=== PATIENT | male | born 1950 | race Caucasian/White ===

== ENCOUNTER 2018-01-31 05:27 | Inpatient (IN) ==
[2018-01-31] MEDS ORDERED: Metoprolol Tartrate 25 MG Tablet PO ONE (05:59)
[2018-01-31] MEDS ORDERED: Chlorhexidine Gluconate 2% 1 Pack (2 Cloths) TOPICAL ONE (05:59)
[2018-01-31] MEDS ORDERED: Sodium Chlor 0.9% Inj 500 ML IV.SIG SCH (06:00)
[2018-01-31] MEDS ORDERED: Dexamethasone Inj 20 MG/5 ML Vial IV.PUSH ONE (06:03)
[2018-01-31] MEDS ORDERED: Chlorhexidine 4% Topical 120 APPLIC/120 ML Bottle TOPICAL SCH (06:15)
[2018-01-31] MEDS ORDERED: Vancomycin Inj 1,000 MG in Sodium Chlor 0.9% Inj 250 ML IV.SIG SCH (07:00)
[2018-01-31] MEDS ORDERED: ceFAZolin 2 GM Premix Inj 2 GM/50 ML PIGGYBACK IV.SIG SCH (07:00)
[2018-01-31] MEDS ORDERED: Sodium Chlor 0.9% Inj 10 ML ONE (07:44)
[2018-01-31] MEDS ORDERED: Ketorolac Inj 30 MG/ML (IVP) Vial IV.PUSH ONE (08:09)
[2018-01-31] MEDS ORDERED: Labetalol HCl Inj 100 MG/20 ML Vial IV.CONT ONE (08:09)
[2018-01-31] MEDS ORDERED: Neostigmine Inj 5 MG/5 ML Syringe IV.PUSH ONE (08:09)
[2018-01-31] MEDS ORDERED: Lidocaine PF 1% Inj 5 ML Syringe OTHER ONE (08:09)
[2018-01-31] MEDS ORDERED: Glycopyrrolate Inj 1 MG/5 ML Syringe IV.PUSH ONE (08:09)
[2018-01-31] MEDS ORDERED: SODIUM CHLOR 0.9% IV.SIG SCH (08:30)
[2018-01-31] MEDS ORDERED: Sodium Chlor 0.9% Inj 73.07 ML, Ropivacaine 0.5% PF Inj 24.63 ML, Ketorolac Inj 30 MG, ... P-ARTICULR SCH ×5 (08:30)
[2018-01-31] MEDS ORDERED: TRANEXAMIC ACID IV.SIG SCH (08:30)
[2018-01-31] MEDS ORDERED: Morphine Inj 4 MG/ML Vial IV.PUSH PRN (09:55)
[2018-01-31] MEDS ORDERED: Aluminum/Magnesium/Simethacone Susp 30 ML UDC PO PRN (09:55)
[2018-01-31] MEDS ORDERED: Post-op Orders (for Pharmacy) OTHER STA (09:55)
[2018-01-31] MEDS ORDERED: Bisacodyl 10 MG Supp RECTAL PRN (09:55)
[2018-01-31] MEDS ORDERED: Zolpidem Tartrate 5 MG Tablet PO PRN (09:55)
--- NOTE | 2018-01-31 09:58 | P.OP ---
- Preoperative Diagnosis (1) Osteoarthritis of left knee - Postoperative Diagnosis (1) Osteoarthritis of left knee Date of procedure: 01/31/18 Anesthesia: [facility], toribio (s) Surgeon: Errol Powell MD Coiler Operator: MOSES Coleman The surgical procedure was assisted by my Advanced Registered Nurse Practitioner. My TURF SALES PERSON presence was necessary throughout this case for the manipulation and positioning of the surgical extremity. My TURF SALES PERSON was assisting me throughout the duration of this procedure. The skill set of an Advance Registered Nurse Practitioner was medically necessary to complete this procedure. During the surgical case, the underwriting technician was working at the back table and the Advance Registered Nurse Practitioner was directly assisting me. Operation and Findings: IMPLANTS: DePuy Attune: Patella: size 38. Femur, posterior stabilized size 8. Tibia, rotating platform size 8. Tibial insert, rotating platform, posterior stabilized size 5 mm thickness. ESTIMATED BLOOD LOSS: 100 cc TOURNIQUET TIME: 35 minutes at 250 mmHg pressure. JUSTIFICATION FOR PROCEDURE: The patient has end-stage osteoarthritis to the knee. There is an attached conservative measures pathway form in the chart that describes the nonoperative measures that were undertaken prior to consideration of surgical management. The patient understood the risks and benefits of surgical management. See my office notes for further details PROCEDURE: The patient was brought back to the operative theatre. Adequate anesthesia was obtained. The patient received intravenous vancomycin and Ancef. The lower extremity was prepped and draped in the usual sterile fashion.The leg was exsanguinated, the tourniquet was raised. A standard anterior incision was performed followed by medial parapatellar arthrotomy was performed. End-stage arthritis was identified. Osteotomy of the patella was performed. We drilled holes for the patella. We trialed the patella component. We placed an intramedullary guide into the distal femur. We ultimately resected 13 mm off of the distal femur in 5 degrees of valgus. The remnants of the ACL and PCL were resected. Osteotomy of the proximal tibia was performed, resecting 5 mm off of the medial side. This was done with 3 degrees of posterior slope using an extramedullary guide. The distal end of the guide was placed in the mid aspect of the ankle. The femur was sized, and four chamfer cuts were completed in 3 of external rotation. We then cut the central box in the distal femur to replace the PCL. We resected the remnants of the menisci and removed osteophytes off of the femur and tibia. We then trialed the knee. We punched the tibia for the keel, and then used standard technique to cement in components. Excess cement was removed. We trialed the knee again and the final polyethylene thickness was chosen to provide extension to 0 degrees, and flexion of 140 degrees to gravity. The ligaments were appropriately balanced. Lateral release was necessary to obtain excellent patellofemoral tracking. The tourniquet was released and adequate hemostasis was obtained. An intra- articular injection of a ropivacaine cocktail was injected. The posterior knee was inspected for excess cement, which was removed. The final polyethylene was put into position after thorough irrigation. We then closed deep fascia with a #2 Stratafix followed by skin with 2-0 Vicryl followed by Dermabond dressing. Postop plan is to weight-bear as tolerated. DVT prophylaxis will be performed with SCDs, SALEEM hose, early mobilization, and aspirin.
[2018-01-31] MEDS ORDERED: *morphine SULFATE 4 MG/ML PERIprocedure ONLY ONE ×2 (10:38→10:50)
[2018-01-31] MEDS ORDERED: fentaNYL Citrate Inj 100 MCG/2 ML Ampul ONE (10:40)
[2018-01-31] MEDS: Sod Chloride 0.9% Inj 1,000 ML IV.CONT SCH (10:43)
[2018-01-31] MEDS ORDERED: HYDROmorphone PF Inj 2 MG/ML Vial ONE ×2 (11:00→12:03)
--- NOTE | 2018-01-31 11:34 | XR ---
EXAM DATE: 01/31/2018 11:24 AM EST AGE/SEX: 67 years / Male INDICATIONS: Post op left knee surgery. CLINICAL DATA: This is the patient's initial encounter. Patient reports that signs and symptoms have been present for 1 day and indicates a pain score of 4/10. MEDICAL/SURGICAL HISTORY: None. . COMPARISON: PCI, XR KNEE COMPLETE, LEFT, 06/27/2017. . FINDINGS: AP and lateral views of the knee following arthroplasty reveals a prosthesis in anatomic alignment. F racture is not appreciated. Surgical drain is evident CONCLUSION: Status post total knee arthroplasty. Blaine Sewell MD FACR Electronically signed by: Blaine Sewell MD 01/31/2018 11:33 AM EST
[2018-01-31] MEDS ORDERED: TRANEXAMIC ACID IV.SIG ONE (12:00)
[2018-01-31] MEDS ORDERED: SODIUM CHLOR 0.9% IV.SIG ONE (12:00)
[2018-01-31] MEDS ORDERED: ceFAZolin 1 GM Premix Inj 1 GM/50 ML FROZ.PIGGY IV.SIG ONE (13:57)
[2018-01-31] MEDS ORDERED: Metoprolol Inj 5 MG/5 ML Vial ONE ×2 (14:40→14:55)
[2018-01-31] MEDS ORDERED: Metoprolol Inj 5 MG/5 ML Vial IV.PUSH SCH ×2 (15:30)
--- NOTE | 2018-01-31 17:45 | P.DCO ---
- Physical Therapy Physical Therapy: Gait training, Transfer training, bed to chair Knee: Total knee Left Lower Extremity Weight Bearing: Weight bearing as tolerated Left Lower Extremity Range of Motion: Active ROM - Nursing Dressing changes: Do not change dressing Additional instructions: First dressing change in the office. - Certification Need for Home Health services: I have seen patient Ramon Valentine on 01/31/18. My clinical findings support the need for the requested home health care services because: Need for Home Health Services: Limited ability to care for self, High risk of falls Homebound Certification: I certify that my clinical findings support that this patient is homebound because: Homebound Certification: Post-op weakness, Unsteady gait/balance
[2018-01-31] MEDS: ceFAZolin 1 GM Premix Inj 1 GM/50 ML FROZ.PIGGY IV.SIG SCH (19:46)
[2018-01-31] MEDS: Senna/Docusate Sodium 8.6/50 MG Tablet PO SCH (21:14)
[2018-01-31] MEDS: Multivitamin/Minerals Therapeutic Tablet PO SCH (21:15)
[2018-02-01] MEDS: ceFAZolin 1 GM Premix Inj 1 GM/50 ML FROZ.PIGGY IV.SIG SCH (01:26)
[2018-02-01] MEDS: Sod Chloride 0.9% Inj 1,000 ML IV.CONT SCH (01:32)
[2018-02-01 05:57] LABS: Hematocrit 39.8 % (39.0-51.0); Hemoglobin 13.7 gm/dL (13.0-17.0)
--- NOTE | 2018-02-01 07:17 | P.PNOP ---
Subjective Interval history: The patient is resting comfortably in bed in no acute distress. The patient reports minimal pain to the left knee. The patient has been ambulatory. The patient states he wants to go home today with home health. Physical Exam Vital signs: Vital Signs 01/31/18 07:58 01/31/18 10:30 01/31/18 10:45 Temperature 97.7 F Pulse Rate 72 72 66 Respiratory Rate 16 14 14 Blood Pressure 135/67 144/74 H 133/63 Pulse Oximetry 99 100 100 01/31/18 11:00 01/31/18 11:15 01/31/18 11:30 Temperature Pulse Rate 68 68 67 Respiratory Rate 12 12 12 Blood Pressure 139/67 142/64 H 142/57 H Pulse Oximetry 100 100 100 01/31/18 12:00 01/31/18 13:00 01/31/18 14:00 Temperature Pulse Rate 75 94 H 109 H Respiratory Rate 12 12 18 Blood Pressure 125/68 115/69 125/79 Pulse Oximetry 97 97 99 01/31/18 14:15 01/31/18 14:40 01/31/18 14:45 Temperature Pulse Rate 114 H 109 H 106 H Respiratory Rate 19 19 Blood Pressure 128/73 138/75 Pulse Oximetry 95 98 95 01/31/18 15:00 01/31/18 15:15 01/31/18 15:30 Temperature 98.5 F 97.8 F Pulse Rate 101 H 90 88 Respiratory Rate 13 13 12 Blood Pressure 126/72 134/65 126/79 Pulse Oximetry 96 94 L 97 01/31/18 19:19 02/01/18 00:00 02/01/18 04:00 Temperature 97.8 F 97.8 F 98.2 F Pulse Rate 90 69 86 Respiratory Rate 16 16 18 Blood Pressure 109/65 144/65 H 157/68 H Pulse Oximetry 94 L 97 95 Intake & Output 01/31/18 02/01/18 02/01/18 18:59 06:59 18:59 Intake Total 3003.24 / 3003.24 800 / 800 Output Total 50 / 50 750 / 750 Balance 2953.24 / 2953.24 50 / 50 Weight 111.2 kg Intake: IV 1423.24 / 1423.24 800 / 800 NS Inj 1,000 ML @ 80 mls/hr IV. 300 / 300 700 / 700 CONT .[id number] [facility] Rx#:[id number] LR 1000 mL Inj 500 ML @ 0 mls/ 500 / 500 hr IV.SIG ONCE ONE Rx#:[id number] Cyklokapron Inj 1,112 MG In NS 223.24 / 223.24 Inj 100 ML @ 200 mls/hr IV.SIG ONCE ONE Rx#:[id number] Vancomycin Inj 1,000 MG In NS 250 / 250 Inj 250 ML @ 250 mls/hr IV.SIG [facility] Rx#:[id number] Ancef 1 GM Premix Inj 1 gm In 100 / 100 50 ml @ 200 mls/hr IV.SIG Q6H [facility] Rx#:[id number] Ancef 2 GM Premix Inj 2 gm In 50 / 50 50 ml @ 100 mls/hr IV.SIG [facility] Rx#:[id number] Ancef Inj 1,000 MG In NS Inj 100 / 100 100 ML @ 200 mls/hr IV.SIG Q6H [facility] Rx#:[id number] Oral 480 / 480 Anesthesia Amount 1100 / 1100 Output: Urine 0 / 0 750 / 750 Estimated Blood Loss 50 / 50 Other: # Voids 1 Date of Last Bowel Movement 01/31/18 Weight On Admission 111.2 kg Narrative: The patient's dressing is clean, dry, and intact. EHL/TA/G are intact. 2+ pedal pulse. The patient's calf is soft and nontender. Sensation is intact to light touch distally. Knee immobilizer is in place. Results - Labs CBC & Chem 7: 02/01/18 04:59 Laboratory Results - last 24 hr 01/31/18 02/01/18 06:46 04:59 Hgb 13.7 Hct 39.8 Blood Type O Negative Antibody Screen Negative - Imaging Impressions Knee X-Ray 01/31/18 09:55 CONCLUSION: Status post total knee arthroplasty. Blaine Sewell MD FACR - Procedures Left total knee arthroplasty Assessment and Plan - Problem List (1) Status post total knee replacement, left Code(s): Z96.652 - Presence of left artificial knee joint Status: Acute (2) Osteoarthritis of left knee Code(s): M17.12 - Unilateral primary osteoarthritis, left knee Status: Acute - Assessment and Plan POD #1: Left total knee arthroplasty 1. Weightbearing as tolerated on left lower extremity. 2. Aspirin 81 mg twice daily for DVT prophylaxis. 3. Ice as needed for swelling. 4. Stable per ortho for discharge to home health today after physical therapy. 5. The patient will follow up with Dr. Powell and/or MOSES Domingo as previously scheduled.
[2018-02-01] MEDS ORDERED: Dexamethasone Inj 20 MG/5 ML Vial IV.PUSH ONE (08:00)
[2018-02-01] MEDS: Senna/Docusate Sodium 8.6/50 MG Tablet PO SCH (09:01)
[2018-02-01] MEDS: Multivitamin/Minerals Therapeutic Tablet PO SCH (09:02)
[2018-02-01 09:33] VITALS: BP 138/73; PULSE 94; RESP 16; TEMP 98.8; O2SAT 96
--- NOTE | 2018-02-01 20:35 | ECG ---
Date Performed: 01/31/2018 Time Performed: 14:35:53 PTAGE: 67 years EKG: SINUS TACHYCARDIA MARKED LEFT AXIS DEVIATION RIGHT BUNDLE BRANCH BLOCK Compared to previous tracing, sinus rate is faster ABNORMAL ECG PREVIOUS TRACING : 01/15/2018 11.55 DOCTOR: Satnam Yeh Interpretating Date/Time 02/01/2018 20:34:14
--- NOTE | 2018-02-07 17:26 | P.DS ---
Date of admission: 01/31/18 05:27 Primary care physician: Eddie Soto Attending physician on discharge: Errol Powell Anticipated date of discharge: 02/01/18 Brief History from admission: The patient was admitted to the hospital for severe OA of the left knee to have a left TKA DS: Diagnosis - Discharge Diagnosis (1) Status post total knee replacement, left Status: Acute (2) Osteoarthritis of left knee Status: Acute DS: Summary Hospital Course: The patient was admitted to the hospital for severe osteoarthritis of the [left ] knee to have a left total knee arthroplasty. The patient's surgery went well with no complication. The patient is on a [regular] diet. The patient's DVT prophylaxis includes use of [Lovenox followed by aspirin]. The patient is weightbearing as tolerated. The patient was discharged [home with home health] and will follow up in the office with Dr. Powell and/or MOSES Domingo as previously scheduled. - Time Spent with Patient Total time spent providing and/or coordinating discharge services: Greater than 30 minutes - Quality: VTE Deep Vein Thrombosis/Pulmonary Embolism Present on Admission: No Exam Narrative: The patient's dressing is clean, dry, and intact. EHL/TA/G are intact. 2+ pedal pulse. The patient's calf is soft and nontender. Sensation is intact to light touch distally. Knee immobilizer is in place. Results Procedures completed during hospitalization: Left total knee arthroplasty - Impressions ITS Impressions Knee X-Ray 01/31/18 09:55 CONCLUSION: Status post total knee arthroplasty. Blaine Sewell MD FACR Discharge Plan - Discharge Disposition Patient Disposition: W/Home Health Service - Discharge Condition Condition: Stable - Discharge Order Discharge Orders: Discharge Order (Routine); Ordered 01/31/18 Ordered By: Magdaleno Stokes - Discharge Details Anticipated Discharge Date: 02/01/18 - Physicians Team Primary Care Provider: Eddie Soto Attending Provider: Errol Powell Other Providers: Nurse Oncall,Agency - Rxs /Orders / Referrals /Forms Prescriptions: Continue multivitamin [Daily Multiple] Tablet 1 tab PO DAILY propranolol 60 mg Tablet 60 mg PO EVERY OTHER DAY simvastatin 40 mg Tablet 40 mg PO QPM Discontinued meloxicam [Mobic] 15 mg Tablet 15 mg PO DAILY Ambulatory Orders / Order Sets / DME: Adjustable Commode 3-in-1 (1 each) (Routine) Location: Determined by Patient Ordered By: Magdaleno Stokes CPM - Continuous Passive Motion Machine (1 each) (Routine) Location: Determined by Patient Ordered By: Magdaleno Stokes Walker With Front Wheels (1 each) (Routine) Location: Determined by Patient Ordered By: Magdaleno Stokes Referrals: Errol Powell MD [Physician] - See Instructions (The patient will f/u in the office as previously scheduled with Dr. Powell or Fabian Stokes APRN. ) Eddie Soto MD [Primary Care Provider] - See Instructions - Discharge Instructions Patient Printed Instructions: How to Choose and Use a Walker (GEN), Precautions after Total Joint Replacement Surgery (DC), Continuous Passive Motion Machine (DC), Knee Replacement (DC)
== END 2018-02-01 10:31 | disposition home health service (06) ==
LOC: HSDI 05:27 → N06 15:38
PROVIDERS: ADMIT Orthopaedic Surgery; ATTEND Orthopaedic Surgery